=== PATIENT | male | born 1965 | race Two or more races ===

== ENCOUNTER 2024-04-03 19:33 | Emergency (ER) | payer MEDICAID, SELFPAY ==
[2024-04-03 19:36] VITALS: BP 148/111; PULSE 81; RESP 18; TEMP 36.8; O2SAT 100
[2024-04-03 19:54] VITALS: PULSE 75; RESP 18; O2SAT 99
[2024-04-03 20:09] VITALS: BMI 27.4
[2024-04-03] MEDS: METOCLOPRAMIDE INJ 5 MG/ML VIAL 2 ML 10 MG IVP (20:29)
[2024-04-03] MEDS: MORPHINE SULF INJ 10 MG/ML VIAL 8 MG IVP (20:30)
[2024-04-03] MEDS: DiphenhydrAMINE INJ 50 MG/ML VIAL IV (20:32)
[2024-04-03] MEDS: DIAZEPAM 5 MG TABLET 10 MG PO (20:33)
--- NOTE | 2024-04-03 20:33 | EDNOTE_ITS ---
ED General RME/HPI General Chief complaint: Chest Pain Stated complaint: CHEST PAIN Arrival date/time: 04/03/24 19:33 Limitations: no limitations RME / HPI RME / HPI narrative: DR. 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 Abbott. He notes decrease effectiveness of his pain management to the point where he has worsening of diffuse abdominal chest and back pain which is consistent with his cancer pain. He says he is under palliative and comfort measures with Dr. Abbott and does not want a full up and is requesting pain management. Related Data Home Medications ?Medication ?Instructions ?Recorded ?Confirmed cetirizine 10 mg tablet 10 mg PO QDAY 12/31/23 12/31/23 diphenhydramine HCl 25 mg capsule 25 mg PO TID PRN Itching 12/31/23 12/31/23 (Benadryl) ondansetron 4 mg disintegrating 4 mg PO Q8H PRN Nausea And Vomiting 12/31/23 12/31/23 tablet oxycodone 10 mg tablet 20 mg PO QID 12/31/23 12/31/23 pantoprazole 40 mg tablet,delayed 40 mg PO QDAY 12/31/23 12/31/23 release pravastatin 20 mg tablet 20 mg PO QDAY 12/31/23 12/31/23 prochlorperazine maleate 10 mg 10 mg PO TID NAUSEA 12/31/23 12/31/23 tablet Previous Rx's ?Medication ?Instructions ?Recorded epinephrine 0.3 mg/0.3 mL 0.3 ml subcut PRNMRX2 PRN 05/20/23 injection, auto-injector (EpiPen hypersensitivity reaction #2 ea 2-Eddie) diphenhydramine HCl 25 mg capsule 25 mg PO Q8H PRN allergic symptoms 01/23/24 (Benadryl) #30 caps Allergies Allergy/AdvReac Type Severity Reaction Status Date / Time Penicillins Allergy Severe Swelling Verified 01/23/24 11:50 of Lip/Tongue/Throat tipiracil [From [place]] AdvReac Severe Swelling Verified 03/21/24 23:50 of Lip/Tongue/Throat trifluridine [From [place]] AdvReac Severe Swelling Verified 03/21/24 23:50 of Lip/Tongue/Throat Review of Systems Review of Systems Systems Reviewed: All systems reviewed, normal except as documented Narrative Review of Systems: GEN: No fever, no chills, no weight loss EYES: No discharge, no visual changes, no pain HEENT: No ear pain, no congestion, no sore throat PULM: No shortness of breath, no cough, no congestion CV: + chest pain, no dyspnea on exertion, no palpitations GI: No nausea, no vomiting, no diarrhea, + worsening of diffuse abdominal pain, no constipation : No frequency, no urgency and no dysuria MUSC/SKEL: No joint pain, + back pain SKIN: No rash PSYCH: No hallucinations, no depression HEME/LYMPH: No easy bleeding or bruising tendencies NEURO: No weakness, no headache Past Medical History Past Medical History NEUROLOGIC: Negative Neurological Disorders or Seizures CARDIAC: Positive Hypercholesterolemia and Hypertension; Negative Cardiac Disorders or Congestive Heart Failure RESPIRATORY: Negative Chronic Obstructive Pulmonary Disease (COPD) or Asthma GASTROINTESTINAL: Positive Gastrointestinal Disorders, Diverticulitis and Colorectal Cancer GENITOURINARY: Negative Genitourinary Disorders or Renal Disease MUSCULOSKELETAL: Positive Musculoskeletal Disorders, Bone Cancer and Arthritis ENDOCRINE: Negative Endocrine Disorders, Diabetes Mellitus Type 1 or Diabetes Mellitus Type 2 HEMATOLOGIC: Negative Blood Disorders or Sickle Cell Disease PSYCHO/SOCIAL: Negative Depression or Anxiety OTHER HISTORY: Positive Hospitalization, Chemotherapy, Radiation Therapy, Cancer and Colorectal Cancer; Negative Autoimmune Disease, Falls, Blood Transfusions, Blood Transfusion Reaction or Anesthesia Reactions Family History FAMILY HISTORY: Positive Family Cardiac Disorders and Family Surgery; Negative Family Psychiatric Problems, Family Respiratory Disorders, Family Gastrointestinal Problems, Family Cancer or Family Anesthesia Reaction Surgical History SURGICAL: Positive Bowel Surgery Social History SMOKING STATUS: Never smoker SUBSTANCE USE: does not use ED Exam General Limitations: Present no limitations General appearance: Present alert and in no apparent distress Head Head exam: Present atraumatic, normocephalic and normal inspection Eye Eye exam: Present normal appearance, PERRL and EOMI ENT ENT exam: Present normal exam, normal oropharynx and mucous membranes moist Neck Neck exam: Present normal inspection, full ROM and trachea midline Chest Chest inspection: Present normal inspection and symmetric chest wall rise Respiratory Respiratory exam: Present normal lung sounds bilaterally Cardiovascular Cardiovascular exam: Present regular rate, normal rhythm and normal heart sounds Abdominal Exam Abdominal exam: Present soft and normal bowel sounds Extremities Exam Extremities exam: Present normal inspection and full ROM Back Exam Back exam: Present normal inspection and full ROM Neurological Exam Neurological exam: Present alert, oriented X3 and CN II-XII intact Psychiatric Psychiatric exam: Present normal affect and normal mood Skin Skin exam: Present warm, dry, intact and normal color Course Quality Measures none Orders Category Date Time Status EKG (ED Only) Stat Exams 04/03/24 20:00 Stop Req Diazepam [Valium] Med 04/03/24 20:08 Discontinued 10 mg PO X1 ONE Diazepam [Valium] Med 04/03/24 22:02 Discontinued 5 mg PO X1 ONE DiphenhydrAMINE INJ [Benadryl Inj] Med 04/03/24 20:08 Discontinued 50 mg IV X1 ONE Metoclopramide Inj [Reglan Inj] Med 04/03/24 20:08 Discontinued 10 mg IVP X1 ONE Morphine Inj Med 04/03/24 22:02 Discontinued 6 mg IVP X1 ONE Morphine Inj Med 04/03/24 20:08 Discontinued 8 mg IVP X1 ONE Reevaluation(s) Reevaluation #1: I spoke with the patient and his at length on his end of life wishes. They do note he?s had increasing abdominal pain, decreased bowel movements, and worsening nausea and vomiting for the last 2 to 3 days. They feel that this could be unlikely a result of his high-dose and narcotics. We did discuss the possibility of having a potentially worsening bowels and even a bowel obstruction today. At this point since he has been able to have a bowel movement here in the emergency department, he does not wish for further work up for this. Even if he has a bowel obstruction, he is not prepared to make a decision as to whether not he would want surgery or colostomy. He would like a trial at home, will discuss options with Dr. Abbott on Thursday. If symptoms return return or worsen he will return to the emergency department to initiate work at that time. agrees with plan and feels safe to take him home. Patient remains clinically stable throughout the emergency department visit. Re- assessment at the time of disposition demonstrates that the patient is in no acute distress. We reviewed all the results, analysis, and treatment plans. Patient is amenable to discharge. Strict return precautions were outlined. Patient was discharged in stable condition. Time: 22:02 Vital Signs Vital signs: Vital Signs Temperature 98.2 F 04/03/24 19:36 Pulse Rate 81 04/03/24 19:36 Respiratory Rate 18 04/03/24 19:36 Blood Pressure 148/111 H 04/03/24 19:36 Pulse Oximetry (%) 100 04/03/24 19:36 Oxygen Delivery Method Nasal Cannula 04/03/24 19:36 Oxygen Flow Rate 2 04/03/24 19:36 [facility] Patient data External records reviewed:: [facility] previous records (Reviewed radiation therapy note by Dr. Abbott dated 03/28/24.) Clinical information provided by:: patient Social determinants that could affect healthcare access:: none Patient has the following chronic illnesses:: Metastatic colon cancer to the liver to the bones into the lungs of use on p alliative radiation and pain management with Dr. Abbott. He says he is under palliative and comfort measures with Dr. Abbott and does not want a full up and is requesting pain management. How is presenting disease/condition affected by chronic disease/condition?: caused by Evaluation data The following diagnostics were reviewed and interpreted by me:: lab results Lab and/or radiology exams considered but not ordered:: none Interpretation Summary: See under [facility] narrative. Medications Medications considered but not ordered:: none Medication administrations:: Medication Administration History Discontinued Medications Diazepam (Diazepam 5 Mg Tablet) 10 mg PO X1 ONE Stop: 04/03/24 20:09 Last Admin: 04/03/24 20:33 Dose: 10 mg Documented By: JARED Diazepam (Diazepam 5 Mg Tablet) 5 mg PO X1 ONE Stop: 04/03/24 22:03 Diphenhydramine HCl (Diphenhydramine Inj 50 Mg/Ml Vial) 50 mg IV X1 ONE Stop: 04/03/24 20:09 Last Admin: 04/03/24 20:32 Dose: 50 mg Documented By: JARED Metoclopramide HCl (Metoclopramide Inj 5 Mg/Ml Vial 2 Ml) 10 mg IVP X1 ONE; Protocol Stop: 04/03/24 20:09 Last Admin: 04/03/24 20:29 Dose: 10 mg Documented By: JARED Morphine Sulfate (Morphine Sulf Inj 10 Mg/Ml Vial) 8 mg IVP X1 ONE Stop: 04/03/24 20:09 Last Admin: 04/03/24 20:30 Dose: 8 mg Documented By: JARED Morphine Sulfate (Morphine Sulf Inj 10 Mg/Ml Vial) 6 mg IVP X1 ONE Stop: 04/03/24 22:03 see above Consultations Consultation(s) initiated? (list below): No Diagnosis Differential Diagnosis ED Complaint MDM: metastatic disease, cancer, chronic pain, colon cancer, mets to bone Most likely diagnosis given after review of the tests above:: Marlin-Lopez tear Colon cancer metastasized to liver Malignant neoplasm of colon metastatic to bone Admission Indicated Admission indicated?: not indicated Explain why admission is indicated or not indicated:: Patient has no emergent abnormalities on his studies and can be managed on an outpatient basis. Admission Request Was there a request for admission?: No Disposition Plan Disposition Plan: Discharge Discharge Attestation Discharge Attestation: The patient and all family members were given an opportunity to ask questions and understood the discharge instructions. Discharge instructions specifically effects, indications for sooner follow up or return to the emergency department, and the expected course of current diagnosis. Patient condition: Stable Medical Decision Making MDM Narrative MDM Narrative: Jennifer Issa am scribing for and in the presence of Dr. Dickerson. Differential Diagnosis Differential Diagnosis: metastatic disease, cancer, chronic pain, colon cancer, mets to bone Discharge Plan Plan Patient Disposition: HOME (Self Care) Prescriptions/Referrals Prescriptions/Med Rec: No Action epinephrine [EpiPen 2-Eddie] 0.3 mg/0.3 mL auto-injector 0.3 ml subcut PRNMRX2 PRN (Reason: hypersensitivity reaction) Qty: 2 0RF diphenhydramine HCl [Benadryl] 25 mg capsule 25 mg PO Q8H PRN (Reason: allergic symptoms) Qty: 30 0RF cetirizine 10 mg tablet 10 mg PO QDAY Patient Comments: TAKE 1 TABLET BY MOUTH EVERY DAY FOR 30 DAYS prochlorperazine maleate 10 mg tablet 10 mg PO TID Patient Comments: TAKE 1 TABLET BY MOUTH THREE TIMES A DAY NEEDED FOR NAUSEA pantoprazole 40 mg tablet,delayed release (DR/EC) 40 mg PO QDAY Patient Comments: TAKE 1 TABLET BY MOUTH EVERY DAY pravastatin 20 mg tablet 20 mg PO QDAY Patient Comments: TAKE 1 TABLET BY MOUTH EVERY DAY oxycodone 10 mg tablet 20 mg PO QID Patient Comments: TAKE 2 TABLETS BY MOUTH EVERY 6 HOURS NEEDED ondansetron 4 mg tablet,disintegrating 4 mg PO Q8H PRN (Reason: Nausea And Vomiting) diphenhydramine HCl [Benadryl] 25 mg capsule 25 mg PO TID PRN (Reason: Itching) Referrals: Dakota Chang MD [Primary Care Provider] - In 1 week Problem List Clinical Impression: Marlin-Lopez tear, Colon cancer metastasized to liver, Malignant neoplasm of colon metastatic to bone Patient/Caregiver Discharge Instructions Education Materials: Colorectal Cancer, Marlin-Lopez Tear Additional Instructions: You can continue with your normal outpatient pain medicines. Follow-up with Dr. Abbott in 2 to 3 days for reevaluation. You can return to the emergency department sooner symptoms worsen or if you notice any new, concerning issues. Print Language: Albanian Stand Alone Forms: Ingrid Award Info., Patient Portal Info Letter
[2024-04-03] MEDS: MORPHINE SULF INJ 10 MG/ML VIAL 6 MG IVP (22:40)
[2024-04-03] MEDS: DIAZEPAM 5 MG TABLET PO (22:42)
== END 2024-04-03 23:07 | disposition home or self-care (01) ==
PROVIDERS: Emergency Provider Emergency Medicine; PCP Family Medicine
DX: K22.6 Gastro-esophageal laceration-hemorrhage syndrome (principal); C78.7 Secondary malignant neoplasm of liver and intrahepatic bile duct; C79.51 Secondary malignant neoplasm of bone; C19 Malignant neoplasm of rectosigmoid junction; E78.00 Pure hypercholesterolemia, unspecified; I10 Essential (primary) hypertension
CPT/HCPCS: 80053; 84484; 85025; 93005; 96374; 96375; 96376; 99285; J1200; J2270; J2765; A9270

== ENCOUNTER 2024-04-20 11:03 | Outpatient (RCR) | payer MEDICAID, SELFPAY ==
--- NOTE | 2024-03-28 15:31 | CTCSNOTE_ITS ---
[facility] [address] [place], [place] [address] Simple Simulation Note Date: 03/28/2024 MR#: [id number] Name: REMY VILLANUEVA : 1965 Port was taken and the field size location and blocks were checked. (A) The port was noted to be in i deal position along with its blocks. Electronically signed by: Rafat Abbott MD, MENDOZAR 03/28/2024 3:29 PM
[2024-04-05 16:33] LABS: Basophils % (Auto) 0 % (0-2.5); Eosinophils # (Auto) 0.1 Thou/mm3 (0.0-0.5); Eosinophils % (Auto) 2 % (0-10); Hematocrit 40.3 % (41.0-53.0); Hemoglobin 14.1 g/dL (13.5-16.0); Immature Granulocytes % (Auto) 0 % (0-0); Immature Granulocytes Auto 0.01 Thou/mm3 (0.00-0.00); Lymphocytes # (Auto) 0.5 Thou/mm3 (1.0-4.8); Lymphocytes % (Auto) 14 % (10-50); Mean Corpuscular Hemoglobin 30.2 pg (25.0-35.0); Mean Corpuscular Volume 86 fL (80-100); Monocytes # (Auto) 0.3 Thou/mm3 (0.0-0.8); Monocytes % (Auto) 7 % (0-12); Neutrophils % (Auto) 77 % (37-80); Nucleated Red Blood Cell % 0 /100 WBC (0); Platelet Count 240 Thou/mm3 (140-440); RDW Standard Deviation 45.1 fL (35.1-43.9); Red Blood Count 4.67 Miln/mm3 (4.50-5.90); White Blood Count 3.9 Thou/mm3 (3.8-10.6)
[2024-04-05 17:17] LABS: Alanine Aminotransferase 10 U/L (10-49); Albumin, Serum 4.4 gm/dL (3.4-4.8); Albumin/Globulin Ratio 1.4 (1.2-2.2); Alkaline Phosphatase 85 U/L (46-116); Anion Gap 9 (7-16); Aspartate Amino Transferase 26 U/L (0-34); BUN/Creatinine Ratio 31 Ratio (12-20); Bilirubin,Total 0.9 mg/dL (0.3-1.2); Blood Urea Nitrogen 22 mg/dL (9-23); Calcium 9.6 mg/dL (8.3-10.6); Calcium (Corrected) 9.6 mg/dL (8.5-10.1); Carbon Dioxide 21.7 mMol/L (20.0-31.0); Chloride 104 mMol/L (98-107); Creatinine (Component) 0.7 mg/dL (0.6-1.3); Globulin 3.2 gm/dL (2.3-3.5); Glucose 72 mg/dL (74-106); Osmolality,Calculated 272 (275-295); Potassium 3.4 mMol/L (3.4-5.1); Sodium 135 mMol/L (136-145); Total Protein 7.6 gm/dL (5.7-8.2); eGFR > 60 See Note
[2024-04-05 17:39] LABS: Carcinoembryonic Antigen 248.3 ng/mL (0.0-5.0)
== END 2024-04-23 23:59 | disposition home or self-care (01) ==
LOC: SCTC 11:03
PROVIDERS: PCP Family Medicine; Referring Provider Family Medicine; Visit Provider Internal Medicine Hematology & Oncology
DX: Z51.0 Encounter for antineoplastic radiation therapy (principal); C18.7 Malignant neoplasm of sigmoid colon; C78.7 Secondary malignant neoplasm of liver and intrahepatic bile duct; C79.51 Secondary malignant neoplasm of bone; Z90.49 Acquired absence of other specified parts of digestive tract; R91.8 Other nonspecific abnormal finding of lung field; G62.0 Drug-induced polyneuropathy; T45.1X5D Adverse effect of antineoplastic and immunosuppressive drugs, subsequent encounter; M84.58XA Pathological fracture in neoplastic disease, other specified site, initial encounter for fracture; Z88.8 Allergy status to other drugs, medicaments and biological substances; G89.3 Neoplasm related pain (acute) (chronic)
CPT/HCPCS: 36591; 77280; 77295; 77300; 77334; 77336; 77412; 77417; 80053; 82378; 85025; 99212; A4216; J1642; G0463

== ENCOUNTER 2024-05-12 13:00 | Outpatient (RCR) | payer MEDICAID, SELFPAY ==
--- NOTE | 2024-05-04 11:08 | CTCTSUMM_ITS ---
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 Most recently had treatments to left acetabulum right is chial 3000 cGy treated between 04/01/2024 through 04/20/2024 Treatment Prescription pelvis AP/PA 10MV 3,000 cGy 10 300 cGy Approved (E) All lundberg were treated using customized MLC Blocks (F) Finding at Discharge: Patient had only partial relief in area treated but had recurrence of pain throughout his body. Radiographically the cancer appears to be active in multiple sites. Currently on OxyContin 40 mg twice daily with 20 mg of oxycodone every 6 for breakthrough. Having to take extr a he is already out of both. I recommend that he gets this renewed today rather than tomorrow and I have prescribed accordingly. Hospice would make it easier to manage his pain but he is not quite rahel dy he is still getting cancer therapy. I will explore the possibility of parenteral pain management as soon as possible. Patient also seeking second opinion through [facility] via telehealth today. Electronically signed by: Rafat Abbott MD, DABR 05/04/2024 11:06 AM
--- NOTE | 2024-05-04 11:31 | CTCTSUMM_ITS ---
[facility] [address] [place], [place] [address] Treatment Summary Date: 05/04/2024 MR#: [id number] Name: REMY VILLANUEVA : 1965 Dx: C18.4 Having unsuccessful thus far in getting home health agency accept him for parenteral opioids. For e time being I asked patient to take oxycodone 20 mg Q4 as needed with OxyContin 40 mg 3 times daily. He will thus need more frequent refills of his pain meds. He is also supplementing his opioids wit h ibuprofen 800 mg 3 times daily. Electronically signed by: Rafat Abbott MD, SOLOMON 05/04/2024 11:28 AM
== END 2024-05-24 23:59 | disposition home or self-care (01) ==
LOC: SCTC 13:00
PROVIDERS: PCP Family Medicine; Referring Provider Radiology Therapeutic Radiology; Visit Provider Radiology Therapeutic Radiology
DX: C18.4 Malignant neoplasm of transverse colon (principal); C78.7 Secondary malignant neoplasm of liver and intrahepatic bile duct; C78.02 Secondary malignant neoplasm of left lung; C78.01 Secondary malignant neoplasm of right lung; C79.51 Secondary malignant neoplasm of bone; G89.3 Neoplasm related pain (acute) (chronic)
CPT/HCPCS: 99213; G0463

== ENCOUNTER → 2024-06-02 | Outpatient (CLI) | payer OTHER, SELFPAY ==
[2024-06-02 17:11] LABS: Carcinoembryonic Antigen 229.2 ng/mL (0.0-5.0)
== END | disposition home or self-care (01) ==
LOC: SCTH 16:21
PROVIDERS: Referring Provider Radiology Therapeutic Radiology; Visit Provider Radiology Therapeutic Radiology
DX: C18.4 Malignant neoplasm of transverse colon (principal); C78.7 Secondary malignant neoplasm of liver and intrahepatic bile duct; C79.51 Secondary malignant neoplasm of bone
CPT/HCPCS: 36415; 82378